=== PATIENT | male | born 1960 | race Asian ===

== ENCOUNTER 2018-04-28 11:39 | Emergency (ER) | payer OTHER ==
[~2018-04-28] VITALS: Ht 177.8 cm; Wt 93.0 kg
[2018-04-28 11:40] VITALS: Ht 177.8 cm; Wt 93.0 kg
[2018-04-28 12:25] LABS: BASOPHIL % 0.1 % (0-2); PLATELET COUNT 272 x10^3mcL (130-400); RED CELL DISTRIBUTION WIDTH 13.5 % (11.5-14.5)
[2018-04-28 12:31] LABS: CARBON DIOXIDE 24.6 mmol/L (21-32); CHLORIDE SERUM 106 mmol/L (98-107); CREATININE SERUM 1.3 mg/dL (0.7-1.3); GFR1 > 60 mL/min; GLUCOSE SERUM 214 mg/dL (74-106); POTASSIUM SERUM 3.9 mmol/L (3.5-5.1); SODIUM SERUM 141 mmol/L (136-145)
[2018-04-28 12:44] LABS: ALKALINE PHOSPHATASE 91 U/L (46-116); ALT/SGPT 48 U/L (16-63); AST/SGOT 24 U/L (15-37); BILIRUBIN TOTAL 0.3 mg/dL (0.20-1.00); CHOLESTEROL 169 mg/dL (<200); TOTAL PROTEIN, SERUM 7.8 g/dL (6.4-8.2)
[2018-04-28 14:35] LABS: AMPHETAMINE QUAL UR NONE DETECTED (See below)
[2018-04-28 16:08] LABS: microscopic required? NO
[2018-04-28 16:15] LABS: MAGNESIUM 1.7 mg/dL (1.8-2.4); PHOSPHOROUS 4.3 mg/dL (2.5-4.9)
[2018-04-28 16:17] LABS: T3 TOTAL 1.02 ng/mL
[2018-04-28 16:31] LABS: UA SPECIFIC GRAVITY >=1.030 (1.005-1.035); urine erythrocyte NEGATIVE (NEGATIVE)
[2018-04-28 17:04] LABS: FREE T4 1.12 ng/dL (0.76-1.46); FREE THYROXINE INDEX 2.9 ug/dL (1.4-4.5); T4(THYROXINE) 8.2 ug/dL (4.7-13.3)
[2018-04-28 17:16] VITALS: BP 116/91
[2018-04-28] MEDS ORDERED: GOOD SENSE ASPI81 M3 PO (17:17)
[2018-04-28] MEDS ORDERED: NORCO 10-325 T1 EACH PO (17:17)
[2018-04-28] MEDS ORDERED: LIPITOR10 MG PO (17:17)
[2018-04-28] MEDS ORDERED: FLE10 PO (17:37)
[2018-04-28] MEDS ORDERED: METFORMIN HCL1000 MG PO (17:37)
[2018-04-28] MEDS ORDERED: NOR10 PO (17:38)
[2018-04-28] MEDS ORDERED: LOSARTAN POTAS100 M1 PO (17:38)
== END 2018-04-28 18:42 ==
LOC: ED 11:39 → DU 15:24 → ED 15:24
PROVIDERS: Emergency Medicine; Family Medicine
DX: T50.992A Poisoning by other drugs, medicaments and biological substances, intentional self-harm, initial encounter (principal); F32.9 Major depressive disorder, single episode, unspecified; Y92.89 Other specified places as the place of occurrence of the external cause
CPT/HCPCS: 36415; 83880; 84439; G0480; J7030; Q0162